=== PATIENT | female | born 1990 | race Caucasian/White ===

== ENCOUNTER 2021-12-08 01:18 | Day surgery (SDC) | payer OTHER, SELFPAY ==
[2021-12-01 15:56] VITALS: BMI 35.4
--- NOTE | 2021-12-01 16:13 | PC.NURSE ---
Report to the Outpatient Waiting Room, entrance under the green pavilion located off [facility], at time _0600on date 12/08/21. OR Time: _0730__. - You and your visitor will be asked a series of questions to screen for COVID 19 for your protection. - Only one visitor is allowed at this time. - The patient visitor is requested to leave or wait in car when not with patient. - A mask is required within the hospital. Patients may have clear liquids (water, carbonated beverages, clear teas, apple juice) until 3 hours prior to surgery with a maximum of 20 ounces. - No food from midnight until time of surgery - Infants may have breast milk until 4 hours before surgery, formula 6 hours prior to surgery. - Children will be allowed to drink immediately following surgery. If applicable, please bring a bottle or sippy cup to assist with drinking. Juice, water, soda, and popsicles are readily available. For infants on formula, please bring formula the day of surgery. Pacifiers are allowed. Take the following medications with a SIP of water the morning of surgery: xanax Medications to discontinue per physician _n/a__ Date to take last dose Please no make-up, nail kinyarwanda, hairspray, perfume, deodorant, or body powder the day of surgery. No jewelry (including any body piercings) or valuables the day of surgery, leave them at home. Please take a shower or bath the night before, or the morning of, surgery with an antibacterial soap. Wear comfortable, loose fitting clothing. Children are encouraged to wear pajamas. - Jewelry must be removed prior to entering the operating room. Rings and piercings that are not removed may be cut off. - The hospital will not accept responsibility for valuables. - Please leave all valuables, including medications, at home the day of surgery. If you are going home after surgery, a licensed cdl b driver must drive you home. - NO public transportation without another adult. - We recommend that an adult stay with you for 24 hours following discharge. - We also recommend that you do not drive, make important decision, drink alcoholic beverages, or take any drugs that were not prescribed by your health care provider for at least 24 hours after your discharge time. For Pediatric surgeries, we recommend two adults accompany the child home (only one inside the building at this time). Follow any additional instructions given to you from your surgeon. If you or anyone in your household have experienced Covid symptoms in the past week, please notify your surgeon or the nurse liaison at the phone number below for possible testing. Telephone instructions given to Edita Yoon and asked if any additional questions and then verbalized understanding. Patient advised to call surgeon office or pre surgery nurse liaison [phone] if any additional questions.
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
[2021-12-08] VITALS (8 sets, daily range): BP systolic 110–140; BP diastolic 70–93; PULSE 61–98; RESP 16–20; TEMP 36.2–36.3; O2SAT 97–100
[2021-12-08] MEDS: ACETAMINOPHEN 500 MG TABLET 1000 MG PO (06:34)
[2021-12-08] MEDS: LACTATED RINGERS 1,000 ML 30 ML IV CONT (06:43)
--- NOTE | 2021-12-08 07:14 | WPDHPUPDATE1 ---
History and Physical Update Update Date/Time: 12/08/21 07:14 History and Physical has been reviewed, including an updated exam of the patient. There are NO changes in the patient's condition. Risks, benefits, and alternatives have been discussed and questions answered. Patient agrees to proceed with procedure.
[2021-12-08] MEDS: ceFAZolin 2 GM/D5W 50 ML 2 GM/50 ML BAG IVPB (07:24)
--- NOTE | 2021-12-08 08:11 | W.PM.PROC2 ---
Procedure Note - Detailed Date of Procedure 12/08/21 Pre-op Diagnosis Menometrorrhagia, Desire Sterilization Post-op Diagnosis Same Procedure Performed 1. Hysteroscopy with uterine curettings 2. Endometrial ablation 3. Laparoscopic bilateral salpingectomy Surgeon Selwyn Ogden MD Anesthesia General Findings 1. Hysteroscopic exam revealed no abnormalities 2. Laparoscopic exam showed no uterine ovarian or tubal abnormalities though there were omental adhesions to the anterior abdominal wall. Description of Procedure Patient was prepped in usual manner for this procedure. Cervical instruments placed for uterine mobility during the laparoscopic portion of the procedure. Periumbilical and bilateral lower incisions were made and trocars placed under direct visualization. Adhesions were noted in the midline and the tubes were identified bilaterally. Using Harmonic scalpel the mesosalpinx was cauterized and cut and the tubes were removed. There were no bleeding at either site gas was allowed to escape and the incisions were approximated using 0 Vicryl. Cervix was dilated allow the hysteroscope to again be placed with no abnormalities noted curettings were obtained. Endometrial ablation instrument was placed cavity assessment was performed and the instrument was activated. At the end of the cycle the hysteroscope was again placed with destruction noted throughout. Patient tolerated the procedure well sent to recovery room stable condition. Estimated Blood Loss 20 Drains No Packing No Pathology Yes Complications No immediate complications Disposition PACU [facility] Billing Surgery - Charge Forward: Surgery Billing
[2021-12-08] MEDS: oxyCODONE HCL (*CRX) 5 MG TAB IR PO (09:32)
== END 2021-12-08 09:56 | disposition home or self-care (01) ==
PROVIDERS: Visit Provider Obstetrics & Gynecology
PROC: 0UDB8ZZ Extraction of Endometrium, Via Natural or Artificial Opening Endoscopic (ICD-10-PCS; CPT 58558; principal; 2021-12-08 07:30)
DX: N92.1 Excessive and frequent menstruation with irregular cycle (principal); Z30.2 Encounter for sterilization; F41.9 Anxiety disorder, unspecified
CPT/HCPCS: 58563; 58661; 88302; 88305; A9270; J0330; J0690; J1100; J1170; J2250; J2405; J2704; J2710; J3010; J7030; J7120

== ENCOUNTER 2024-03-11 12:10 | Outpatient (CLI) | payer OTHER, SELFPAY ==
--- NOTE | ~2024-03-11 | MM_ITS ---
EXAMINATION: MM screening estefany BI w aaliyah HISTORY: Screening TECHNIQUE: Craniocaudal and mediolateral oblique 3-D tomosynthesis images were obtained and synthetic 2-D images were generated. CAD analysis was submitted and interpreted. COMPARISON: No prior mammogram is available for comparison at this institution. BREAST PARENCHYMAL COMPOSITION: Not dense: There are scattered areas of fibroglandular density. FINDINGS: There are 2 adjacent low-density masses in the upper outer quadrant of the right breast, co nsistent with benign intramammary lymph nodes. There is no evidence of suspicious mass, calcification , or architectural distortion to suggest malignancy in either breast. There has been no suspicious in terval change. IMPRESSION: 1. No mammographic evidence of malignancy. 2. Recommend routine screening mammography in one year. BI-RADS Category 2: Benign finding(s). Reviewed, dictated and finalized at location B.
== END 2024-03-11 12:11 | disposition home or self-care (01) ==
LOC: MICIMG 12:11
PROVIDERS: PCP Nurse Practitioner; Visit Provider Obstetrics & Gynecology
DX: Z12.31 Encounter for screening mammogram for malignant neoplasm of breast (principal); Z80.3 Family history of malignant neoplasm of breast
CPT/HCPCS: 77063; 77067

== ENCOUNTER 2025-03-13 10:04 | Outpatient (CLI) | payer OTHER, SELFPAY ==
--- NOTE | ~2025-03-13 | MM_ITS ---
EXAMINATION: MM screening estefany BI w aaliyah HISTORY: Screening TECHNIQUE: Craniocaudal and mediolateral oblique 3-D tomosynthesis images were obtained and synthetic 2-D images were generated. CAD analysis was submitted and interpreted. COMPARISON: 03/11/2024 BREAST PARENCHYMAL COMPOSITION: Not Dense: The breasts are almost entirely fatty. FINDINGS: There is no evidence of suspicious mass, calcification, or architectural distortion to suggest malignancy. There has been no suspicious interval change. IMPRESSION: 1. No mammographic evidence of malignancy. Recommend routine screening mammography in one year. BI-RADS Category 2: Benign finding(s) Reviewed, dictated and finalized at location Q. IMPRESSION: 1. No mammographic evidence of malignancy. Recommend routine screening mammogra phy in one year. BI-RADS Category 2: Benign finding(s)
== END 2025-03-13 10:05 | disposition home or self-care (01) ==
PROVIDERS: PCP Nurse Practitioner; Visit Provider Nurse Practitioner
DX: Z12.31 Encounter for screening mammogram for malignant neoplasm of breast (principal)
CPT/HCPCS: 77063; 77067